=== PATIENT | male | born 1950 | race Caucasian/White ===

== ENCOUNTER → 2022-10-27 09:47 | Outpatient (BNVA) | payer OTHER, SELFPAY | PROVIDERS: PCP Preventive Medicine Public Health & General Preventive Medicine; Visit Provider Internal Medicine | DX: R63.4 Abnormal weight loss (principal) | CPT/HCPCS: 99202 ==

== ENCOUNTER 2022-11-05 10:51 | Day surgery (SDC) | payer OTHER, SELFPAY ==
[2022-11-05 10:59] VITALS: BMI 21.6
[2022-11-05 11:16] VITALS: BP 114/70; PULSE 95; RESP 18; TEMP 36.1; O2SAT 100
--- NOTE | 2022-11-05 11:19 | P.CONAN_ITS ---
HPI - Anesthesia Eval Consult details Narrative: for weight loss PMFSH Active Problems Active Problems: All Active Problems (Updated 10/27/22 @ 10:13 by Nova Bruce MD) Unintentional weight loss (Acute) Family History Family History Mother Breast cancer Family history of problems with anesthesia: No Surgical History History of Problems with Anesthesia: No Social History Social History Alcohol intake: never Patient Tobacco Use Status: Never used Tobacco Use of substances other than those prescribed or required for medical reasons: No Are you DNR?: No Advance Directives: No Advance Directives Information Provided: Yes Meds Allergies Allergy/AdvReac Type Severity Reaction Status Date / Time No Known Allergies Allergy Verified 10/27/22 09:58 Exam Exam Date and Time: November 05, 2022 1119 Height,Weight and Vital Signs: Height 5 ft 8 in Weight 64.41 kg Last Vital Signs Temp 97.0 F 11/05/22 11:16 Pulse 95 11/05/22 11:16 Resp 18 11/05/22 11:16 BP 114/70 11/05/22 11:16 Pulse Ox 100 11/05/22 11:16 O2 Del Method Room Air 11/05/22 11:16 Airway Mallampati Class: I TM Dist: >3cm Neck ROM: Full Loose/Missing/Broken Teeth: No Heart: rr Lungs: ca cta Assessment and Plan Assessment Anesthesia Assessment: Anesthesia Plan Discussed and Chart Reviewed Final Anesthetic Review Family History of Problems with Anesthesia: No History of Problems with Anesthesia: No NPO: Yes ASA Class: I Final Preanesthetic Review: No Changes in Pt Med Stat, Meds/Allgs Chart Revi ewed, Consent Obtained/Reviewed and Anes Risks/Benef Reviewed Patient Risk: Low Procedure Risk: Low Anesthetic Plan Anesthetic Plan: MAC: Disposition: Standard PACU
--- NOTE | 2022-11-05 11:24 | MHC.SHP ---
Pre-Procedural Eval Section A Date of Service: 11/05/22 The History & Physical has been completed within 30 days and I have reviewed it.: Yes Section B Chief Complaint: Abnormal weight loss Allergies: Allergies Allergy/AdvReac Type Severity Reaction Status Date / Time No Known Allergies Allergy Verified 10/27/22 09:58 Plan Diagnosis/Plan: Unchanged I have reviewed the history and physical and performed a pertinent physical examination on my patient. No changes have occurred unless specified. Time Spent With Patient Time: Total time managing care of this patient today ____ minutes.
[2022-11-05] MEDS: Lactated Ringers 1,000 ML 50 ML IVCONT (11:31)
--- NOTE | 2022-11-05 11:36 | P.OP_ITS ---
Operative Note Operative Note Date of Service: 11/05/22 Narrative: Procedure:?Esophagogastroduodenoscopy and Colonoscopy Indication:? unintentional weight loss Endoscopist:?Nova Bruce MD Anesthesia Provider:?Dr Padmini Rueda Anesthesia type:?MAC Instrument:?Olympus GIF-H190, PCF-H190L EGD Procedure:?? The procedure, indications, preparation and potential complications were reviewed with the patient, who indicated understanding and gave written informed consent to proceed. A physical exam was performed. A bite block was placed. The endoscope which was then introduced through the mouth, and advanced to the second part of the duodenum. The mucosa was carefully examined on slow withdrawal of the endoscope. The patient tolerated the procedure well. There were no immediate complications.? ? EGD Findings:? * Esophagus: The Z line was at 39 cm and was irregular up to 38 cm. Cold forceps biopsies were taken to rule out Shah's esophagus. A hiatal hernia was noted with diaphragmatic pinch at 43. A focal patch of heterotopic gastric mucosa was noted at the level of cricopharyngeus. Remaining esophageal mucosa was normal. * Stomach:?Normal mucosa was noted in the stomach. Retroflexion in the fundus confirmed the size and morphology of the hiatal hernia with Hill Class III. Random cold forceps biopsies were taken to rule out H pylori. * Duodenum:? Normal mucosa to the extent seen.?Cold forceps biopsies were taken from the duodenal bulb and 2nd portion of the duodenum to rule out celiac sprue. Colonoscopy Procedure:? The patient was then turned for the colonoscopy. A digital rectal exam was performed and solid stool was felt in his rectal vault.?This was manually disimpacted. A distal attachment cap was affixed to the tip of the scope and the colonoscope was then inserted through the anus and advanced through the colon to the sigmoid colon. Solid stool was present throughout precluding endoscopic evaluation. The scope was withdrawn and the procedure was terminated. Limitations: Poor prep Colonoscopy Findings: Incomplete colonoscopy due to poor prep. Impression:? * Inlet patch * Hiatal hernia * Normal stomach (biopsy) * Normal duodenum (biopsy) * Incomplete colonoscopy Recommendations: * Await path results.? * Repeat colonoscopy to be set up within the next 6 months. Findings were reviewed with the patient and relevant handouts were provided.
[2022-11-05 12:08] VITALS: BP 86/56; PULSE 85; RESP 16; TEMP 36.4; O2SAT 98
[2022-11-05 12:23] VITALS: BP 104/65; PULSE 74; RESP 16; TEMP 36.4; O2SAT 100
== END 2022-11-05 13:12 | disposition home or self-care (01) ==
PROVIDERS: Visit Provider Internal Medicine
PROC: (CPT 45330; principal; 2022-11-05 12:10)
DX: R63.4 Abnormal weight loss (principal); Z68.21 Body mass index [BMI] 21.0-21.9, adult; R63.0 Anorexia; R68.81 Early satiety; R11.0 Nausea; K44.9 Diaphragmatic hernia without obstruction or gangrene; Q39.8 Other congenital malformations of esophagus; Z80.3 Family history of malignant neoplasm of breast
CPT/HCPCS: 45330; 43239; 88305; 88342

== ENCOUNTER 2022-12-02 13:21 | Outpatient (REF) | payer OTHER, SELFPAY ==
--- NOTE | ~2022-12-02 | CT_ITS ---
EXAMINATION: CT ABDOMEN AND PELVIS WITH CONTRAST CLINICAL INFORMATION: Abnormal weight loss. COMPARISON: None available. TECHNIQUE: Multidetector volumetric images were obtained from the superior aspect of the liver through the pubic symphysis following administration 85 mL of Omnipaque 350 intravenous contrast. Sagittal and coronal reformatted images were obtained on the technologist's workstation. Oral contrast: Yes This CT examination was performed using dose optimization techniques as appropriate, variously including the following: *Automated exposure control *Adjustment of mA and/or kV according to patient size (this includes techniques or standardized protocols for targeted exams where dose is matched to indication/reason for exam; i.e. extremities or head) *Use of iterative reconstruction technique DLP: 262 mGy-cm FINDINGS: LUNG BASES: Scarring and areas of consolidation at the lung bases have a rounded appearance. 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 Trace left pleural effusion. LIVER, GALLBLADDER, AND BILIARY TREE: The liver is normal in size, shape, and attenuation. No focal hepatic lesion or biliary ductal dilatation is present. The gallbladder is unremarkable with no evidence of radiopaque gallstones, gallbladder wall thickening, or obvious pericholecystic inflammatory changes. PANCREAS: No discrete pancreatic ductal dilatation. There is an ill-defined retroperitoneal process involving the tail of the pancreas over a length of approximately 4.5 cm. Posterior to the pancreas there is abnormal soft tissue throughout this segment of the retroperitoneum involving the diaphragmatic shelby common the tissue around the adrenal gland, celiac, and superior mesenteric arteries as well as the left renal artery. 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 The splenic artery is patent. This could represent a pancreatic malignancy with local invasion of the retroperitoneal tissues posterior to the pancreas or a retroperitoneal process extending into the pancreas though the former is favored. SPLEEN: Well-circumscribed low-attenuation lesion in the inferior tip of the spleen measures 1.8 cm and intermediate Hounsfield units. This may reflect a splenic hemangioma. ADRENAL GLANDS: There is no discrete adrenal mass. KIDNEYS AND URETERS: Symmetric nephrograms. Punctate nonobstructing calculus in the upper pole the right kidney. No hydronephrosis. BLADDER: Urinary bladder is unremarkable. GASTROINTESTINAL TRACT: Small hiatal hernia. The small bowel is normal in caliber. The large bowel is normal in caliber. No evidence of bowel obstruction. ABDOMINAL WALL: No significant hernia is appreciated. LYMPH NODES: Aside from the retroperitoneal process described above which could be lymphoma, no discrete lymphadenopathy is seen. VASCULAR: The retroperitoneal process encases the celiac artery, splenic artery, proximal superior mesenteric artery, left renal artery, and obliterates the splenic vein. There is some narrowing of the proximal superior mesenteric artery and the left renal artery. PELVIC VISCERA: The prostate and seminal vesicles are unremarkable. OSSEOUS STRUCTURES: Unremarkable. 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 The differential would include lymphoma, but primary pancreatic cancer is favored based on the splenic vein obliteration and narrowing of the SMA and left renal artery. Scarring and areas of rounded consolidation at the lung bases. 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 Therefore recommend chest CT for further evaluation. Fleischner guidelines were followed.
[2022-12-02] MEDS: iohexoL 350 MG/ML 100 ML INFUS..BTL IV (15:32)
[2022-12-02] MEDS: Barium Sulfate Oral (Mocha) 450 ML ORAL.SUSP 900 ML PO (15:33)
[2022-12-03 08:39] LABS: Creatinine POC 0.5 mg/dL (0.5-1.4); GFR POC 60
== END 2022-12-02 13:22 | disposition home or self-care (01) ==
LOC: HO.CT 13:21
PROVIDERS: Visit Provider Internal Medicine
DX: R63.4 Abnormal weight loss (principal)
CPT/HCPCS: 74177; 82565; Q9967

== ENCOUNTER 2023-01-21 11:49 | Day surgery (SDC) | payer OTHER, SELFPAY ==
[2023-01-21] VITALS (7 sets, daily range): BP systolic 102–116; BP diastolic 65–72; PULSE 68–78; RESP 16; TEMP 36.6–36.8; O2SAT 98–100; BMI 19.7
--- NOTE | ~2023-01-21 | CT_ITS ---
PROCEDURE: CT GUIDED BIOPSY, ABDOMINAL MASS CLINICAL INFORMATION: Pancreatic mass and retroperitoneal lymphadenopathy. COMPARISON: None available. TECHNIQUE: Following explaining CT fluoroscopy-guided retroperitoneal/pancreatic mass biopsy procedure, benefits and risk, a written consent was obtained. Patient was placed prone and preliminary CT imaging was obtained. An optimal slice was selected and a marker placed along the left para midline region. The area was cleaned and draped in the usual sterile manner. 1% lidocaine was injected at marked site. A 19-gauge 10 cm long coaxial needle was advanced from the skin into the left vertebral mass. Coaxially 20-gauge 15 cm long Chiba needle was advanced through the guide needle and single pass fine-needle biopsy aspiration was performed. Subsequently a 20-gauge biopsy gun was advanced and a 3 pass core biopsy was performed. Postprocedure the guide needle was removed and complete hemostasis achieved at puncture site. There is no bleeding seen. Patient tolerated procedure extremely well. Conscious sedation was utilized for 25 minutes during the procedure. Patient was monitored by IR nursing and IR physician. This CT examination was performed using dose optimization techniques as appropriate, variously including the following: *Automated exposure control *Adjustment of mA and/or kV according to patient size (this includes techniques or standardized protocols for targeted exams where dose is matched to indication/reason for exam; i.e. extremities or head) *Use of iterative reconstruction technique DLP: 371 mGy-cm FINDINGS: On pulmonary CT imaging there is retroperitoneal mass/adenopathy more prominent in the left para aortic region. A single pass fine-needle biopsy followed by core biopsy of left para-aortic mass was performed. There were no immediate complications. Preliminary results revealed malignant cells. Definite pathology results are pending. CT/CT biopsy abdomen percutaneous IMPRESSION: Successful CT fluoroscopy-guided left retroperitoneal mass/lymph node fine-needle and core biopsy performed.
== END 2023-01-21 17:06 | disposition home or self-care (01) ==
PROVIDERS: PCP Preventive Medicine Public Health & General Preventive Medicine; Visit Provider Radiology Diagnostic Radiology
DX: C48.0 Malignant neoplasm of retroperitoneum (principal); R59.0 Localized enlarged lymph nodes; R63.4 Abnormal weight loss; M54.50 Low back pain, unspecified; R11.0 Nausea; R63.0 Anorexia; R53.83 Other fatigue; R53.1 Weakness; Z79.899 Other long term (current) drug therapy
CPT/HCPCS: 49180; 77012; 88172; 88173; 88305; 88333; 88341; 88342; J2250; J3010

== ENCOUNTER 2023-01-26 15:45 | Outpatient (REF) | payer OTHER, SELFPAY ==
--- NOTE | ~2023-01-26 | CT_ITS ---
EXAMINATION: CT CHEST WITH CONTRAST CLINICAL INFORMATION: Follow-up masslike densities in the lower lobes on abdominal and pelvic CT scan COMPARISON: Abdominal and pelvic CT scan November 2022 TECHNIQUE: Multidetector volumetric CT imaging of the chest was obtained after the administration of 65 mL of Omnipaque 350 intravenous contrast without immediate adverse reactions. Axial MIP volume rendering provided. Sagittal and coronal reformatted images were obtained. This CT examination was performed using dose optimization techniques as appropriate, variously including the following: *Automated exposure control *Adjustment of mA and/or kV according to patient size (this includes techniques or standardized protocols for targeted exams where dose is matched to indication/reason for exam; i.e. extremities or head) *Use of iterative reconstruction technique DLP: 101 mGy-cm FINDINGS: LUNGS: There is a 3 x 4 cm peripheral or subpleural mass/nodule in the right lower lobe. There is adjacent smaller peripheral or subpleural satellite nodules largest measuring 1 cm axial image 50 series 3. There are innumerable smaller peripheral or subpleural nodules in the right lung. Some of these appear clustered and peribronchial in distribution questionable for airways disease. There is similar-appearing large peripheral or subpleural nodular opacities in the left lower lobe. Largest nodular opacity measures 1.8 x 2.8 cm axial image 53 series 3. There are smaller adjacent more satellite nodules largest measuring 1.5 x 3 cm in the more anterior left lower lobe axial image 53 series 3. There is a peripheral or subpleural left upper lobe nodule adjacent to the fissure measuring 1 x 2.8 cm axial image 22 series 3. There is a 0.8 cm peripheral nodule in the inferior segment of the lingula axial image 46 series 3. There are numerous additional smaller subcentimeter peripheral or subpleural nodules in the left lung. MEDIASTINUM: The visualized thyroid gland is unremarkable. There is bilateral hilar and mediastinal lymphadenopathy. Largest lymph node or cluster of lymph nodes is a right hilar lymph node measuring 2 x 2.6 cm. normal heart size. No pericardial effusion. There is fat stranding and nodularity of the pericardial fat worrisome for tumor involvement. PLEURA: There is a moderate left pleural effusion. There is a trace right pleural effusion. AXILLA: No lymphadenopathy. UPPER ABDOMEN: Mass in the tail of the pancreas and abnormal soft tissue in the retroperitoneum not appreciably changed. Occluded splenic vein and varices. Appearance is suggestive of primary pancreatic cancer. OSSEOUS STRUCTURES: Question 1 cm sclerotic lesion in the left L1 vertebral body. There are dense small sclerotic lesions in the T7 vertebral body and T 5 vertebral body that may represent bone islands. CT/CT chest w IV con IMPRESSION: Bilateral peripheral predominantly lower lung nodule opacities/masses concerning for metastatic disease. Moderate left and tiny right pleural effusions. Enlarged mediastinal and hilar lymph nodes. Nodular appearance of the pericardial fat worrisome for metastatic involvement. Fleischner guidelines were followed.
[2023-01-26] MEDS: iohexoL 350 MG/ML 100 ML INFUS..BTL IV (16:20)
== END 2023-01-26 15:46 | disposition home or self-care (01) ==
LOC: HO.CT 15:45
PROVIDERS: Visit Provider Internal Medicine Medical Oncology
DX: C25.9 Malignant neoplasm of pancreas, unspecified (principal)
CPT/HCPCS: 71260; Q9967